=== PATIENT | female | born 1935 | race African-American/Black ===

== ENCOUNTER 2017-07-14 18:56 | Emergency (ER) | payer MEDICARE ==
[~2017-07-14] VITALS: Ht 162.6 cm; Wt 68.0 kg
[2017-07-14] MEDS ORDERED: cefTRIAXone 2 GM in NS 110 ML IV SCH (19:00)
[2017-07-14] MEDS ORDERED: CARVEDILOL12.5 MG ORAL (19:16)
[2017-07-14] MEDS ORDERED: ASPIRIN81 MG ORAL (19:16)
--- NOTE | 2017-07-14 19:16 | Emergency Room Report ---
History of Present Illness General Chief Complaint: Altered Level of Consciousness Source: Family Member, EMS Present Illness HPI Patient is an 82-year-old female who presented after increased altered level of consciousness. Patient had recent neck surgery approximately one half months ago. This was performed at [facility] however case patient is a [facility] member. The patient had surgery for spinal stenosis. Patient's course was complicated by the left-sided weakness which required steroid dosing. The patient was not known to have prior CVA. The patient been taking medications for cholesterol as well as for gout and some type of rheumatoid disease. Allergies: Coded Allergies: SULFA (SULFONAMIDE ANTIBIOTICS) (Verified Allergy, Severe, Rash, 07/14/17) Patient History Past Medical History: see triage record Last Menstrual Period: na Reviewed Nursing Documentation: PMH: Agreed, PSxH: Agreed Nursing Documentation-PMH Past Medical History: No History, Except For Hx Hypertension: Yes Review of Systems All Other Systems: negative except mentioned in HPI Physical Exam Vital Signs Date Time Temp Pulse Resp B/P (MAP) Pulse Ox O2 Delivery O2 Flow Rate FiO2 07/14/17 18:48 99.5 112 20 146/70 99 Room Air 99.5 Sp02 EP Interpretation: reviewed, normal General Appearance: normal inspection, well appearing, no apparent distress, alert, lethargic, Chronically Ill Head: atraumatic ENT: normal ENT inspection, hearing grossly normal, normal voice Neck: normal inspection, full range of motion, supple, no bony tend, limited range of motion Respiratory: normal inspection, lungs clear, normal breath sounds, no respiratory distress, no retraction, no wheezing Cardiovascular #1: regular rate, rhythm, no edema Gastrointestinal: normal inspection, normal bowel sounds, non tender, soft, no guarding, no hernia Genitourinary: no CVA tenderness Musculoskeletal: normal inspection, back normal, normal range of motion Neurologic: normal inspection, alert, responsive, hearing instrument specialist III-XII nml as tested, speech normal, motor weakness - bilateral, left toe upgoing Psychiatric: normal inspection, judgement/insight normal, mood/affect normal Skin: normal inspection, normal color, no rash Medical Decision Making Diagnostic Impression: Primary Impression: Altered level of consciousness Additional Impressions: Dehydration Pneumonia Deep venous thrombosis H/O neck surgery ER Course Patient presented for altered mental status. Differential diagnosis included but was not limited to ischemic stroke, subarachnoid hemorrhage, hypoglycemia, spinal cord injury, neurodegenerative disorder, urinary tract infection, hypoxemia, DVT.Because of complexity of patient's case laboratory testing and imaging studies were ordered.The patient was noted to have some risk factors for DVT. Patient's was noted to have asymmetric edema in her left lower extremity. This may be due to patient's neurologic condition however duplex ultrasound was ordered.The patient's surgical site appears to be not infected. The patient was discussed with Dr. Colmenares case number [phone]. Patient will be transferred to [place] for definitive management Labs Test 07/14/17 19:29 07/14/17 19:55 White Blood Count 12.8 K/UL (4.8-10.8) Red Blood Count 3.02 M/UL (4.20-5.40) Hemoglobin 8.5 G/DL (12.0-16.0) Hematocrit 26.5 % (37.0-47.0) Mean Corpuscular Volume 88 FL (80-99) Mean Corpuscular Hemoglobin 28.1 PG (27.0-31.0) Mean Corpuscular Hemoglobin Concent 31.9 G/DL (32.0-36.0) Red Cell Distribution Width 15.5 % (11.6-14.8) Platelet Count 198 K/UL (150-450) Mean Platelet Volume 7.6 FL (6.5-10.1) Neutrophils (%) (Auto) 83.4 % (45.0-75.0) Lymphocytes (%) (Auto) 6.9 % (20.0-45.0) Monocytes (%) (Auto) 9.1 % (1.0-10.0) Eosinophils (%) (Auto) 0.1 % (0.0-3.0) Basophils (%) (Auto) 0.5 % (0.0-2.0) Sodium Level 139 MMOL/L (136-145) Potassium Level 4.0 MMOL/L (3.5-5.1) Chloride Level 103 MMOL/L (98-107) Carbon Dioxide Level 31 MMOL/L (21-32) Anion Gap 5 mmol/L (5-15) Blood Urea Nitrogen 13 mg/dL (7-18) Creatinine 0.7 MG/DL (0.55-1.30) Estimat Glomerular Filtration Rate mL/min (>60) Glucose Level 174 MG/DL (74-106) Lactic Acid Level 0.80 mmol/L (0.66-2.22) Calcium Level 9.0 MG/DL (8.5-10.1) Phosphorus Level 3.2 MG/DL (2.5-4.9) Magnesium Level 1.7 MG/DL (1.8-2.4) Total Bilirubin 0.5 MG/DL (0.2-1.0) Aspartate Amino Transf (AST/SGOT) 15 U/L (15-37) Alanine Aminotransferase (ALT/SGPT) 24 U/L (12-78) Alkaline Phosphatase 84 U/L (46-116) Total Creatine Kinase 84 U/L (26-308) Creatine Kinase MB < 0.5 NG/ML (0.0-3.6) Creatine Kinase MB Relative Index 0.5 Troponin I 0.025 ng/mL (0.000-0.056) Total Protein 6.3 G/DL (6.4-8.2) Albumin 2.1 G/DL (3.4-5.0) Globulin 4.2 g/dL Albumin/Globulin Ratio 0.5 (1.0-2.7) Urine Color Pale yellow Urine Appearance Clear Urine pH 9 (4.5-8.0) Urine Specific Rupert 1.015 (1.005-1.035) Urine Protein 1+ (NEGATIVE) Urine Glucose (UA) Negative (NEGATIVE) Urine Ketones Negative (NEGATIVE) Urine Occult Blood Negative (NEGATIVE) Urine Nitrite Negative (NEGATIVE) Urine Bilirubin Negative (NEGATIVE) Urine Urobilinogen Normal MG/DL (0.0-1.0) Urine Leukocyte Esterase 1+ (NEGATIVE) Urine RBC 0-2 /HPF (0 - 2) Urine WBC 2-4 /HPF (0 - 2) Urine Squamous Epithelial Cells Few /LPF (NONE/OCC) Urine Bacteria Few /HPF (NONE) EKG Diagnostic Results Rate: normal Rhythm: NSR ST Segments: no acute changes Rhythm Strip Diag. Results EP Interpretation: yes Rhythm: NSR, no PVC's, no ectopy Last Vital Signs Date Time Temp Pulse Resp B/P (MAP) Pulse Ox O2 Delivery O2 Flow Rate FiO2 07/14/17 18:48 99.5 112 20 146/70 99 Room Air 99.5 Status: improved Disposition: XFER SHT-TRM HOSP Condition: Serious Ebenezer Talavera Jul 14, 2017 19:16
[2017-07-14 20:05] LABS: BASOPHILS % (AUTO) 0.5 % (0.0-2.0); EOSINOPHILS % (AUTO) 0.1 % (0.0-3.0); HEMATOCRIT 26.5 % (37.0-47.0); HEMOGLOBIN 8.5 G/DL (12.0-16.0); LYMPHOCYTES % (AUTO) 6.9 % (20.0-45.0); MEAN CORPUSCULAR VOLUME 88 FL (80-99); MONOCYTES % (AUTO) 9.1 % (1.0-10.0); NEUTROPHILS % (AUTO) 83.4 % (45.0-75.0); PLATELET COUNT 198 K/UL (150-450); RED BLOOD COUNT 3.02 M/UL (4.20-5.40); RED CELL DISTRIBUTION WIDTH 15.5 % (11.6-14.8); WHITE BLOOD COUNT 12.8 K/UL (4.8-10.8)
[2017-07-14 20:14] LABS: APPEARANCE,URINE CLEAR; BILIRUBIN, URINE NEGATIVE (NEGATIVE); COLOR,URINE PALE YELLOW; GLUCOSE, URINE (UA) NEGATIVE (NEGATIVE); KETONES,URINE NEGATIVE (NEGATIVE); LEUKOCYTE ESTERASE ,URINE 1+ (NEGATIVE); NITRITE,URINE NEGATIVE (NEGATIVE); PH,URINE 9 (4.5-8.0); PROTEIN,URINE 1+ (NEGATIVE); UROBILINOGEN,URINE NORMAL MG/DL (0.0-1.0)
[2017-07-14 20:27] LABS: ANION GAP 5 mmol/L (5-15); BLOOD UREA NITROGEN 13 mg/dL (7-18); CARBON DIOXIDE 31 MMOL/L (21-32); CHLORIDE 103 MMOL/L (98-107); CREATININE 0.7 MG/DL (0.55-1.30); SODIUM 139 MMOL/L (136-145)
[2017-07-14] MEDS ORDERED: TRAMADOL HCL50 MG ORAL (20:28)
[2017-07-14] MEDS ORDERED: ATORVASTATIN CA40 MG ORAL (20:28)
[2017-07-14] MEDS ORDERED: TERAZOSIN HCL1 MG ORAL (20:39)
[2017-07-14] MEDS ORDERED: VITAMIN D32000 UNI3 PO (20:39)
[2017-07-14] MEDS ORDERED: IRON325 M1 PO (20:39)
[2017-07-14] MEDS ORDERED: ESCITALOPRAM OX10 MG ORAL (20:39)
[2017-07-14] MEDS ORDERED: AMLODIPINE BESYL5 MG ORAL (20:39)
[2017-07-14] MEDS ORDERED: ALLOPURINOL100 M1 ORAL (20:39)
[2017-07-14] MEDS ORDERED: OXYCODONE HCL5 MG ORAL (20:39)
[2017-07-14] MEDS ORDERED: GABAPENTIN300 MG ORAL (20:39)
[2017-07-14] MEDS ORDERED: ZESTRIL10 M1 ORAL (20:39)
[2017-07-14] MEDS ORDERED: MAGNESIUM400 M1 PO (20:39)
[2017-07-14] MEDS ORDERED: CALCIUM CITRAT1 EAC2 PO (20:39)
[2017-07-14] MEDS ORDERED: BACLOFEN10 MG ORAL (20:39)
[2017-07-14] MEDS ORDERED: VITAMIN C500 M1 ORAL (20:39)
[2017-07-14 20:40] LABS: ALANINE AMINOTRANSFERASE 24 U/L (12-78); ALBUMIN 2.1 G/DL (3.4-5.0); ALBUMIN/GLOBULIN RATIO 0.5 (1.0-2.7); ALKALINE PHOSPHATASE 84 U/L (46-116); ASPARTATE AMINO TRANSFERASE 15 U/L (15-37); BILIRUBIN,TOTAL 0.5 MG/DL (0.2-1.0); CKMB < 0.5 NG/ML (0.0-3.6); CREATINE KINASE 84 U/L (26-308); PHOSPHORUS 3.2 MG/DL (2.5-4.9)
[2017-07-14] MEDS ORDERED: ASPIRIN325 MG ORAL (20:40)
[2017-07-14] MEDS ORDERED: Enoxaparin 80mg Inj SUBQ SCH (21:45)
[2017-07-14] MEDS ORDERED: Azithromycin 500 MG in D5W 275 ML IVPB ONE (21:45)
[2017-07-14] MEDS ORDERED: Azithromycin 500mg Inj IV ONE (21:56)
[2017-07-14 22:13] VITALS: BP 140/51
[2017-07-14] MEDS ORDERED: traMADol 50mg tab ORAL ONE (23:00)
[2017-07-14] MEDS ORDERED: Enoxaparin 100mg Inj SUBQ ONE (23:17)
[2017-07-14 23:48] VITALS: BP 140/51
--- NOTE | 2017-07-15 09:40 | Diagnostic Imaging Report ---
Indication: Shortness of breath Technique: One view of the chest Comparison: none Findings: The heart is enlarged. There is minimal atelectasis in the right infrahilar region. The lungs and pleural spaces are clear otherwise. There is surgical hardware in the cervical spine and upper thoracic spine as well as evidence of prior bone grafts Impression: Cardiomegaly No definite acute process. Incidental findings as noted
--- NOTE | 2017-07-15 09:42 | Diagnostic Imaging Report ---
Indication: Altered mental status Technique: spiral acquisitions obtained through the brain. Angled axial and coronal 5 x 5 mm slices were reconstructed. No IV contrast utilized. Radiation dose was minimized using automated exposure control Total dose length product 1379.6 mGycm. CTDIvol(s) 70.38 mGy Comparison: none FINDINGS: No acute hemorrhage or edema. No mass effect or midline shift. There is age-related enlargement of the ventricles and extra axial CSF spaces. There is periventricular deep white matter ischemic change. Normal william-white differentiation. Visualized orbits are unremarkable. Visualized sinuses are unremarkable. Intact calvarium. Patent cavum septum lucidum-normal anatomic variant. IMPRESSION: Chronic and age-related changes. Negative for acute intracranial bleed or mass effect This agrees with the preliminary interpretation provided overnight by [facility]erad[facility] service. The CT scanner at [facility] is accredited by the [employer] and the scans are performed using protocols designed to limit radiation exposure to as low as reasonably achievable to attain images of sufficient resolution adequate for diagnostic evaluation
--- NOTE | 2017-07-15 16:54 | Cardiology Report ---
APPROVED REPORT EKG Measurement Heart [id number] Sinus tachycardia Non specific ST-T changes. Otherwise normal ECG
== END 2017-07-14 23:50 | disposition short-term general hospital (02) ==
LOC: EDBD 18:56 → EMR 19:00
DX: R41.82 Altered mental status, unspecified (principal); E86.0 Dehydration; J18.9 Pneumonia, unspecified organism; I82.409 Acute embolism and thrombosis of unspecified deep veins of unspecified lower extremity; I10 Essential (primary) hypertension; Z98.890 Other specified postprocedural states; Z88.2 Allergy status to sulfonamides
CPT/HCPCS: 36415; 70450; 71045; 80053; 81003; 82550; 82553; 83605; 83735; 84100; 84484; 85025; 87040; 93005; 93971; 96374; 96375; 99285; J0456; J0696; J1650